=== PATIENT | male | born 1965 | race Caucasian/White ===

== ENCOUNTER 2022-08-02 11:56 | Observation (INO) ==
--- NOTE | 2022-08-02 12:56 | XRay Report ---
SINGLE VIEW CHEST CLINICAL HISTORY: Atypical chest pain. FINDINGS: An AP, portable, upright chest radiograph is compared to study dated 02/20/2022. The examina tion is degraded by portable technique and apical lordotic positioning. The heart is top normal for p rojection. The pulmonary vasculature is noncontrasted. The lungs and pleural spaces are clear. No pne umothorax is seen. The bony thorax is grossly intact. IMPRESSION: No active disease in the chest. ACT 112: Negative or not required by law. Electronically signed by: Josue Raphael M.D. 08/02/2022 12:54 PM
[2022-08-02 13:03] LABS: Basophils # (auto) 0.02 K/uL (0-0.2); Basophils % (auto) 0.3 %; Eosinophils # (auto) 0.14 K/uL (0-0.50); Eosinophils % (auto) 2.1 %; Hematocrit (blood only) 41.5 % (42.0-52.0); Immature Granulocytes # (auto) 0.02 K/uL (0.01-0.20); Immature Granulocytes % (auto) 0.3 %; Lymphocytes # (auto) 1.23 K/uL (1.2-3.4); Lymphocytes % (auto) 18.4 %; Mean Corpuscular Hemoglobin 30.3 pg (25.0-34.0); Mean Corpuscular Hgb Conc 33.7 g/dL (32.0-36.0); Mean Corpuscular Volume 89.8 fL (80.0-100.0); Mean Platelet Volume 10.6 fL (9.4-12.4); Neutrophils # (auto) 4.66 K/uL (1.40-6.50); Neutrophils % (auto) 69.9 %; Platelet Count 111 K/uL (130-400); RDW Coefficient of Variation 13.2 % (11.5-14.5); RDW Standard Deviation 43.4 fL (36.4-46.3); Red Blood Count 4.62 M/uL (4.70-6.10); White Blood Count 6.67 K/ul (4.8-10.8)
[2022-08-02 13:07] LABS: Albumin Globulin Ratio 1.9 (0.9-2); Albumin Level 4.4 gm/dl (3.4-5.0); BUN Creatinine Ratio 7.7 (10-20); Bilirubin,Total 0.6 mg/dl (0.2-1.0); Calcium 8.9 mg/dl (8.6-10.3); Creatinine Clr Calc Pharmacy 104.4 ml/min; Est GFR (African American) 91.9 ml/min; Est GFR (Non-African American) 79.3 ml/min; Globulin 2.3 gm/dl (2.5-4.0); Potassium 3.9 mmol/L (3.5-5.1); Total Protein 6.7 gm/dl (6.0-8.3)
[2022-08-02 13:17] LABS: Partial Thromboplastin Ratio 0.8; Partial Thromboplastin Time 20.8 Seconds (21.0-31.0); Prothrombin Time 10.3 Seconds (9.0-12.0); Troponin I High Sensitivity 26.1 pg/ml (0-20)
[2022-08-02] MEDS ORDERED: SODIUM CHLORIDE 0.9% 1000ML 1,000 ML IV ONE (14:24)
[2022-08-02] MEDS ORDERED: ASPIRIN CHEW 324 MG PO STA (14:24)
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
--- NOTE | 2022-08-02 15:12 | CT Scan Report ---
CT SCAN OF THE BRAIN WITHOUT IV CONTRAST CLINICAL HISTORY: Headache. COMPARISON STUDY: No priors. TECHNIQUE: Unenhanced axial CT scan of the brain is performed from the vertex to the skull base. A d ose lowering technique was utilized adhering to the principles of ALARA. CT DOSE: 601.98 mGy.cm FINDINGS: Brain parenchyma: The brain parenchyma is normal in appearance. There is no hemorrhage, mass effect, or evidence of acute territorial ischemia by CT criteria. Perez-white matter differentiation is preser eliud. No extra-axial fluid collection is seen. Ventricles, sulci, cisterns: Normal in configuration. Intracranial vasculature: The visualized intracranial vasculature at the skull base is normal in appe arance. Calvarium: Unremarkable. Sinuses and mastoids: There is evidence of previous paranasal sinus surgery. Mild mucosal thickening is noted in the ethmoid sinuses. The remaining visualized paranasal sinuses are clear. The mastoid ai r cells are well pneumatized. Orbits: The bony orbits are grossly intact. IMPRESSION: No acute intracranial abnormality. ACT 112: Negative or not required by law. Electronically signed by: Josue Raphael M.D. 08/02/2022 3:11 PM
[2022-08-02 15:14] LABS: Influenza A virus by PCR Negative (Neg); Influenza B virus by PCR Negative (Neg); RSV by PCR Negative (Neg); SARS CoV2 RNA(COVID-19) Ceph NEGATIVE (Negative)
[2022-08-02] MEDS ORDERED: ALBUTEROL 0.083% NEBU SOLN 3 ML VIAL NEB STA (15:22)
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
[2022-08-02] MEDS ORDERED: hydrALAZINE HCL 20 MG/ML VIAL IV STA (16:16)
[2022-08-02] MEDS ORDERED: clonazePAM 0.5 MG TAB PO STA (17:23)
[2022-08-02] MEDS ORDERED: amLODIPine BESYLATE 5 MG TAB PO ONE (17:30)
[2022-08-02] MEDS ORDERED: OPTIRAY 320 500ml IV ONE (18:17)
[2022-08-02 18:40] LABS: Adenovirus PCR Not Detected (NotDetected); Bordetella parapertussis PCR Not Detected (NotDetected); Bordetella pertussis PCR Not Detected (NotDetected); Chlamydia pneumoniae PCR Not Detected (NotDetected); Coronavirus 229E PCR Not Detected (NotDetected); Coronavirus CoV-2 (COVID19)PCR Not Detected (NotDetected); Coronavirus HKU1 PCR Not Detected (NotDetected); Coronavirus NL63 PCR Not Detected (NotDetected); Coronavirus OC43PCR Not Detected (NotDetected); Human Metapneumovirus PCR Not Detected (NotDetected); Influenza A PCR Not Detected (NotDetected); Influenza B PCR Not Detected (NotDetected); Mycoplasma pneumoniae PCR Not Detected (NotDetected); Parainfluenza Virus 1 PCR Not Detected (NotDetected); Parainfluenza Virus 2 PCR Not Detected (NotDetected); Parainfluenza Virus 3 PCR Not Detected (NotDetected); Parainfluenza Virus 4 PCR Not Detected (NotDetected); Respiratory Syncytial VirusPCR Not Detected (NotDetected)
[2022-08-02] MEDS ORDERED: ONDANSETRON INJ 2 MG/ML 2 ML VIAL IV PRN (18:44)
[2022-08-02] MEDS ORDERED: clonazePAM 0.5 MG TAB PO PRN (18:44)
[2022-08-02] MEDS ORDERED: ACETAMINOPHEN 325 MG TAB PO PRN (18:44)
--- NOTE | 2022-08-02 18:45 | CT Scan Report ---
CHEST CTA for PULMONARY ARTERIES CT DOSE: 832.66 mGy.cm HISTORY: dyspnea, chest pain/tightness, resp illness; r/oPE TECHNIQUE: Multiaxial CT images of the chest were performed following the intravenous administration of contrast to evaluate the pulmonary arteries. Maximal intensity projection images were also obtaine d. A dose lowering technique was utilized adhering to the principles of ALARA. COMPARISON STUDY: Abdomen and pelvis CT 02/06/2022. FINDINGS: Normal caliber thoracic aorta with no evidence for a dissection. The heart is top normal in size. No pleural or pericardial effusions. Suboptimal opacification of the pulmonary arteries due to the timing of contrast. However, there are no definite filling defects within the pulmonary arteries to suggest a pulmonary embolus. Limited views of the upper abdomen demonstrate hepatic steatosis and splenomegaly. This remains unchanged. Normal thyroid gland. Normal caliber esophagus. No mediastinal or hilar lymphadenopathy. No acute fractures. No pneumothorax. The central airways are patent. Mild emphysema. No focal lung consolidations to suggest a pneumonia. No evidence for pulmonary edema. IMPRESSION: 1. No evidence for a pulmonary embolus. 2. No focal lung consolidations to suggest a pneumonia. 3. Mild emphysema. 4. Hepatic steatosis and splenomegaly again noted. ACT 112: Negative or not required by law. Electronically signed by: Dilan Garcia M.D. 08/02/2022 6:42 PM
[2022-08-02 18:53] LABS: Rhinovirus/Enterovirus PCR DETECTED (NotDetected)
[2022-08-02] MEDS: LEVALBUTEROL TARTRATE 15 GM HFA.AER.AD INH SCH (20:57)
[2022-08-02] MEDS: IPRATROPIUM BROMIDE HFA INHALER INH SCH (20:57)
[2022-08-02] MEDS: INSULIN ASPART PER UNIT CHARGE SC SCH (21:26)
[2022-08-02] MEDS: LATANOPROST 0.005% OP SOLN 2.5 ML BTL OPB SCH (21:30)
[2022-08-02] MEDS: FIRST - Mouthwash BLM 119 ML PO SCH (21:30)
[2022-08-02] MEDS ORDERED: LANTUS PER UNIT CHARGE SQ ONE (21:30)
[2022-08-02] MEDS: guaiFENesin 600 MG TABCR PO SCH (21:31)
[2022-08-02] MEDS: AMMONIUM LACTATE 12% LOTION 225 GM BTL EXT SCH (21:31)
[2022-08-02] MEDS: traZODone HCL 50 MG TAB PO SCH (21:31)
[2022-08-02] MEDS: PANTOprazole 40 MG TAB PO SCH (21:31)
[2022-08-02] MEDS: BENZONATATE 100 MG CAPSULE PO SCH (21:31)
[2022-08-02] MEDS: MECLIZINE 12.5 MG TAB PO SCH (21:31)
--- NOTE | 2022-08-03 06:14 | Electrocardiogram Report ---
Test Reason : Blood Pressure : / mmHG Vent. Rate : 064 BPM Atrial Rate : 064 BPM P-R Int : 138 ms QRS Dur : 086 ms QT Int : 384 ms P-R-T Axes : 068 043 033 degrees QTc Int : 396 ms Normal sinus rhythm Normal ECG When compared with ECG of 20-FEB-2022 14:23, No significant change was found Confirmed by Jamel Velez ([id number]) on 08/03/2022 6:14:10 AM Referred By: Confirmed By:Jamel Velez
[2022-08-03 07:14] LABS: Hemoglobin 14.5 g/dl (14.0-18.0); Mean Corpuscular Hemoglobin 30.7 pg (25.0-34.0); Mean Corpuscular Hgb Conc 34.5 g/dL (32.0-36.0); Mean Corpuscular Volume 88.8 fL (80.0-100.0); Mean Platelet Volume 11.2 fL (9.4-12.4); Platelet Count 133 K/uL (130-400); RDW Coefficient of Variation 13.2 % (11.5-14.5); RDW Standard Deviation 43.4 fL (36.4-46.3); Red Blood Count 4.73 M/uL (4.70-6.10)
[2022-08-03 07:31] LABS: BUN Creatinine Ratio 11.3 (10-20); Calcium 8.9 mg/dl (8.6-10.3); Creatinine Clr Calc Pharmacy 101.7 ml/min; Est GFR (African American) 89.9 ml/min; Est GFR (Non-African American) 77.5 ml/min; Potassium 4.4 mmol/L (3.5-5.1)
[2022-08-03] MEDS: IPRATROPIUM BROMIDE HFA INHALER INH SCH ×3 (07:48→14:48)
[2022-08-03] MEDS: LEVALBUTEROL TARTRATE 15 GM HFA.AER.AD INH SCH ×3 (07:49→14:48)
[2022-08-03] MEDS ORDERED: predniSONE 20 MG TAB PO SCH (09:00)
[2022-08-03] MEDS ORDERED: amLODIPine BESYLATE 5 MG TAB PO SCH (09:00)
[2022-08-03] MEDS: FIRST - Mouthwash BLM 119 ML PO SCH ×4 (09:22→20:42)
[2022-08-03] MEDS: BUDESONIDE EC 3 MG CAP PO SCH (09:23)
[2022-08-03] MEDS: DULoxetine HCL 30 MG CAP PO SCH (09:23)
[2022-08-03] MEDS: busPIRone 7.5 MG TAB PO SCH (09:23)
[2022-08-03] MEDS: MECLIZINE 12.5 MG TAB PO SCH ×3 (09:23→20:42)
[2022-08-03] MEDS: FEXOFENADINE HCL 180 MG TAB PO SCH (09:23)
[2022-08-03] MEDS: CITALOPRAM 20 MG TAB PO SCH (09:23)
[2022-08-03] MEDS: guaiFENesin 600 MG TABCR PO SCH ×2 (09:23→20:42)
[2022-08-03] MEDS: MONTELUKAST SODIUM 10 MG TABLET PO SCH (09:23)
[2022-08-03] MEDS: BENZONATATE 100 MG CAPSULE PO SCH ×3 (09:24→20:42)
[2022-08-03] MEDS: PANTOprazole 40 MG TAB PO SCH ×2 (09:24→20:42)
[2022-08-03] MEDS: FLUTICASONE/VILANTEROL 200/25MCG 14 PUFFS/INHALER INH SCH (09:24)
[2022-08-03] MEDS: FLUTICASONE PROPIONATE NA SPR 16 GM BTL SCH (09:24)
[2022-08-03] MEDS: AMMONIUM LACTATE 12% LOTION 225 GM BTL EXT SCH ×2 (09:25→20:43)
[2022-08-03] MEDS: INSULIN ASPART PER UNIT CHARGE SC SCH ×4 (09:29→20:43)
[2022-08-03] MEDS ORDERED: LEVALBUTEROL TARTRATE 15 GM HFA.AER.AD INH PRN (16:41)
[2022-08-03] MEDS ORDERED: IPRATROPIUM BROMIDE HFA INHALER INH PRN (16:41)
[2022-08-03] MEDS ORDERED: amLODIPine BESYLATE 5 MG TAB PO ONE (18:05)
--- NOTE | 2022-08-03 20:07 | Hospitalist Progress Note ---
Date of Service August 03, 2022 Assessment & Plan (1) Persistent asthma with acute exacerbation: Plan: Chronic, uncontrolled asthma - now with flare 2nd to rhinovirus infection. IMPROVED overnight s/p steroids, nebs, cough meds, etc. Prednisone 60mg today, then 50mg tomorrow, and so forth. Cont nebs. Cont pulm toilet. at discharge would PLACE BACK ON DAILY ICS/LABA - HE HAD BEEN ON BREO IN THE PAST- THUS CONTINUE SUCH UPON D/C. He apparently follows with pulmonary in [place] but uncertain how compliant he is with that provider. (2) Rhinovirus infection: Plan: BioFire + for such. Droplet precautions. With resulting asthma exacerbation. See #1. (3) Elevated blood pressure reading without diagnosis of hypertension: Plan: Patient's medical record shows HTN in his past medical history. Patient himself, however, denies he has high blood pressure. With that said he has taken losartan and other meds based on pharmacy records. His BPs were markedly elevated (SBP 200+) upon ER presentation. Started amlodipine 5mg daily. Has had improvement with such. Titrate to 10mg/day. Obtain echo. Recent TSH wnl. (4) Chest pain: Plan: Suspect 2nd to #1 above. Pain has not been reproducible on exam. At time of ER presentation the pain had been continuous for nearly 24 hours. Troponin scantly elevated - likely from #3 - and quickly fell back to normal. no PEs seen on CTA chest. He had another episode of transient CP today - self-resolved. Plan - * given CAD risk factors will obtain echocardiogram * could consider stress test depending on clinical course and echo findings (5) Elevated troponin: Plan: Likely myocardial demand ischemia in setting of #1, #2. Doubt ischemia but see #4 above. Cont Telemetry. (6) Tinnitus: Plan: Acute on chronic. Chronic BPV? Acute Viral vestibular neuronitis? Started meclizine 12.5mg TID. Symptoms improved with such. Refer to ENT post-d/c. (7) Sleep apnea: Plan: Allow home use of BIPAP. If not available then will use hospital issued BIPAP. (8) Depression: Plan: Cont home meds. Anxiety - continue clonazepam prn. (9) Chronic sinusitis: Plan: Mucinex. Nasal steroid. Singulair. Refer to ENT post-d/c. Sinuses actually look fairly good on CT head done this admission. (10) Diabetes mellitus: Plan: HbA1c 6.9% -- 02/2022. Hold metformin. Given steroid his BSGs are elevated; thus, will use lantus + novolog. BSGs ac/hs. Adjust insulins as needed. 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 Ultimately referred to [facility] for this. On daily Entocort 6mg for such? (12) Glaucoma: Plan: Continue home drops. (13) History of peptic ulcer disease: Plan: Cont PPI twice daily. Plan DVT proph - if he stays beyond tomorrow add chemical DVT proph. Cont observation could potentially d/c tomorrow if he feels well, echo is wnl, etc. would advise outpatient stress echo if he does indeed discharge home on 08/04 Admission and Anticipated Discharge Date Admission Date: August 02, 2022 Subjective tele stable overnight - NSR he overall feels better today less cough less congestion no dyspnea had multiple loose stools this am - he reports his PCP Dr Peña had ordered stool studies at recent office visit despite the loose stools he is eating well and denies vomiting had 1 brief episode of chest discomfort - had it when he laid down today; quickly resolved when he sat back up only happened 1x this pain was different than the pain he had at time of ER presentation EKG obtained shortly after the episode - my reading - NSR, no ST Changes, looks the same as previous EKG Review of Systems Review of Systems: gen - no fevers cv - see HPI pulm - no dyspnea GI - no pain neuro - dizziness improved w/ meclizine Physical Exam Physical Exam: gen - obese, looks very good today HENT - pharyngeal erythema improved today; MMM neck - no JVD heart - RRR, s1 s2, no murmur lungs - wheezes resolved, airation improved; no rales abd - soft, NT, ND, BS+ chest - no reproducible chest wall pain to palpation ext - no edema, pulses 2+ b/l Results & Data Results & Data Vital Signs (Past 12 Hours) Vital Signs Temp Pulse Pulse Resp BP Pulse Ox O2 Del Method 08/03/22 19:36 36.9 C 86 18 167/78 H 95 Room Air 08/03/22 14:49 72 08/03/22 14:59 36.7 C 80 18 179/89 H 95 Room Air 08/03/22 14:48 90 16 96 Room Air 08/03/22 11:03 36.6 C 75 18 160/81 H 95 Room Air 08/03/22 10:58 75 16 96 Room Air Laboratory Results Laboratory Results - last 24 hr 08/02/22 08/02/22 08/02/22 20:24 21:15 21:15 WBC RBC Hgb Hct MCV MCH MCHC RDW Std Deviation RDW Coeff of Ernst Plt Count MPV Sodium Potassium Chloride Carbon Dioxide Anion Gap BUN Creatinine Est Cr Clr Drug Dosing Est GFR ( Amer) Est GFR (Non-Af Amer) BUN/Creatinine Ratio Glucose POC Glucose 247 H Calcium Magnesium 1.8 Troponin I High Sens 14.6 D 08/03/22 08/03/22 08/03/22 06:42 06:42 07:22 WBC 10.30 RBC 4.73 Hgb 14.5 Hct 42.0 MCV 88.8 MCH 30.7 MCHC 34.5 RDW Std Deviation 43.4 RDW Coeff of Ernst 13.2 Plt Count 133 MPV 11.2 Sodium 139 Potassium 4.4 Chloride 105 Carbon Dioxide 27 Anion Gap 7 BUN 12 Creatinine 1.06 Est Cr Clr Drug Dosing 101.7 Est GFR ( Amer) 89.9 Est GFR (Non-Af Amer) 77.5 BUN/Creatinine Ratio 11.3 Glucose 153 H POC Glucose 150 H Calcium 8.9 Magnesium Troponin I High Sens 08/03/22 08/03/22 08/03/22 10:52 15:50 19:50 WBC RBC Hgb Hct MCV MCH MCHC RDW Std Deviation RDW Coeff of Ernst Plt Count MPV Sodium Potassium Chloride Carbon Dioxide Anion Gap BUN Creatinine Est Cr Clr Drug Dosing Est GFR ( Amer) Est GFR (Non-Af Amer) BUN/Creatinine Ratio Glucose POC Glucose 148 H 199 H 190 H Calcium Magnesium Troponin I High Sens Diagnostic Findings EKG today - NSR, no ST Changes PG Care Time/CCT Total # of Minutes Spent Total Time Spent with Patient: Total time spent is greater than 50% in coordination of care (as documented) at patient's floor/unit and/or counseling patient: Coding Level of Care Code 99604 SUB INP/OBS CARE 50MIN Diagnoses Persistent asthma with acute exacerbation J45.901 Rhinovirus infection B34.8 Elevated blood pressure reading without diagnosis of hypertension R03.0 Chest pain R07.9 Elevated troponin R77.8 Tinnitus H93.19 Sleep apnea G47.30 Depression F32.A Chronic sinusitis J32.9 Diabetes mellitus E11.9 Light chain (AL) amyloidosis E85.81 Glaucoma H40.9 History of peptic ulcer disease Z87.11
[2022-08-03] MEDS: LATANOPROST 0.005% OP SOLN 2.5 ML BTL OPB SCH (20:42)
[2022-08-03] MEDS: traZODone HCL 50 MG TAB PO SCH (20:42)
[2022-08-03] MEDS ORDERED: LANTUS PER UNIT CHARGE SQ SCH ×2 (21:00)
--- NOTE | 2022-08-04 07:14 | Electrocardiogram Report ---
Test Reason : Blood Pressure : / mmHG Vent. Rate : 078 BPM Atrial Rate : 078 BPM P-R Int : 134 ms QRS Dur : 086 ms QT Int : 374 ms P-R-T Axes : 061 045 024 degrees QTc Int : 426 ms Normal sinus rhythm Normal ECG When compared with ECG of 02-AUG-2022 12:22, No significant change was found Confirmed by Reynaldo Singh ([id number]) on 08/04/2022 7:13:39 AM Referred By: REFERRED SELF Confirmed By:Kunal Singh
--- NOTE | 2022-08-04 07:34 | XCELERA ---
[id number]
[2022-08-04 07:35] LABS: BUN Creatinine Ratio 17.1 (10-20); Calcium 8.7 mg/dl (8.6-10.3); Creatinine Clr Calc Pharmacy 91.3 ml/min; Est GFR (African American) 79.7 ml/min; Est GFR (Non-African American) 68.8 ml/min; Potassium 4.2 mmol/L (3.5-5.1)
[2022-08-04] MEDS ORDERED: amLODIPine BESYLATE 5 MG TAB PO SCH (09:00)
[2022-08-04] MEDS ORDERED: predniSONE 50 MG TAB PO SCH (09:00)
[2022-08-04] MEDS: FIRST - Mouthwash BLM 119 ML PO SCH ×2 (09:04→11:59)
[2022-08-04] MEDS: DULoxetine HCL 30 MG CAP PO SCH (09:05)
[2022-08-04] MEDS: MONTELUKAST SODIUM 10 MG TABLET PO SCH (09:05)
[2022-08-04] MEDS: PANTOprazole 40 MG TAB PO SCH (09:05)
[2022-08-04] MEDS: CITALOPRAM 20 MG TAB PO SCH (09:05)
[2022-08-04] MEDS: BUDESONIDE EC 3 MG CAP PO SCH (09:05)
[2022-08-04] MEDS: FEXOFENADINE HCL 180 MG TAB PO SCH (09:05)
[2022-08-04] MEDS: busPIRone 7.5 MG TAB PO SCH (09:05)
[2022-08-04] MEDS: MECLIZINE 12.5 MG TAB PO SCH (09:05)
[2022-08-04] MEDS: AMMONIUM LACTATE 12% LOTION 225 GM BTL EXT SCH (09:06)
[2022-08-04] MEDS: guaiFENesin 600 MG TABCR PO SCH (09:06)
[2022-08-04] MEDS: FLUTICASONE PROPIONATE NA SPR 16 GM BTL SCH (09:07)
[2022-08-04] MEDS: FLUTICASONE/VILANTEROL 200/25MCG 14 PUFFS/INHALER INH SCH (09:07)
[2022-08-04] MEDS: BENZONATATE 100 MG CAPSULE PO SCH (09:10)
[2022-08-04] MEDS: INSULIN ASPART PER UNIT CHARGE SC SCH ×2 (09:13→12:03)
[2022-08-04 10:44] LABS: Adenovirus F 40/41 PCR Not Detected (NotDetected); Astrovirus PCR Not Detected (NotDetected); Campylobacter PCR Not Detected (NotDetected); Cryptosporidium PCR Not Detected (NotDetected); Cyclospora cayetanensis PCR Not Detected (NotDetected); Entamoeba histolytica PCR Not Detected (NotDetected); Enteroaggregative E.coli(EAEC) Not Detected (NotDetected); Enteropathogenic E.coli (EPEC) Not Detected (NotDetected); Enterotoxigenic E.coli (ETEC) Not Detected (NotDetected); Giardia lamblia PCR Not Detected (NotDetected); Norovirus GI/GII PCR Not Detected (NotDetected); Plesiomonas shigelloides PCR Not Detected (NotDetected); Rotavirus A PCR Not Detected (NotDetected); Salmonella PCR Not Detected (NotDetected); Sapovirus PCR Not Detected (NotDetected); Shiga-like Toxin E.coli (STEC) Not Detected (NotDetected); Shigella/Enteroinvasive E.coli Not Detected (NotDetected); Vibrio cholerae PCR Not Detected (NotDetected); Vibrio species PCR Not Detected (NotDetected); Yersinia enterocolitica PCR Not Detected (NotDetected)
--- NOTE | 2022-08-04 21:01 | Discharge Summary ---
Date of Service August 04, 2022 Admission HPI Per Admitting Provider 57yo male with history of asthma (vs COPD), former smoker (quit ~20 years ago), light chain amyloidosis diagnosed via colonoscopy 08/09/2020 at [facility] (now followed by [facility]), chronic neck pain, and T2DM presents from home with several days of runny nose, sore throat, nasal congestion, cough, mild sputum production, tinnitus (although this seems chronic), dizziness/vertigo, and dyspnea on exertion. He reports that sometime last evening he developed sternal chest pain "like someone is sitting on my chest." The pain has been constant since that time. It is not pleuritic. Pushing on the chest does not reproduce the pain. Albuterol has not relieved the pain. The patient reports that he has been on inhalers for asthma for some time. He could not tell me how long. He has followed with Pulmonology in [place]. He has been using albuterol on a daily basis for an uncertain amount of time - probably months. Sometimes he will use albuterol more than once each day. With respect to controller agents he reports having "another inhaler" but was unable to tell me the name. Patient mentions a host of other chronic issues including - * bright red bleeding per rectum - again he was dx with light chain amyloidosis of the colon in 2020; now following with the [facility]; placed on entocort 6mg daily for such? started this in the fall 2021? * dizziness - comes on with head movement and going from sitting to standing position; also comes on with other movements; he feels he is "off balance" and moving; not discrete spinning but he has disequilibrium * chronic sinus issues * high blood pressure - he was blaming his high BPs in the ER on receiving albuterol neb; he does report having used a multi-symptom cold/cough agent at home yesterday and possibly sudafed; he has taken blood pressure meds in the past including losartan Admission Exam Per Admitting Provider gen - obese, coughing, talks quickly and jumps from topic to topic, NAD/no respiratory distress eyes - PERRL HENT - TMs clear b/l, mild retraction; nose congested; throat - significant erythema of posterior pharynx neck - supple, shotty lymphadenopathy b/l heart - tachy, s1 s2, no murmur lungs - airation fair-poor, scattered end-exp wheezes, no rales, no respiratory distress abd - soft, mildly tender upper abdomen to deep palpation, obese, BS+ ext - no edema, pulses 2+ b/l neuro - strength 5/5 x 4 exts skin - no rash Principal Diagnosis Asthma Exacerbation Discharge Exam Constitutional WD/WN, vitals as above + obese Eyes + anicteric sclerae ENMT external ear and nose normal, oropharynx normal Neck trachea midline, no thyromegaly Respiratory normal respiratory effort and + cough Auscultation: lungs clear to auscultation bilaterally Cardiovascular RRR, no murmur, no edema Musculoskeletal Head/Neck/Chest: normocephalic and head atraumatic Skin no rashes, warm and dry Neurologic moves all extremities Psychiatric A+Ox3, euthymic affect Discharge Data Allergies Allergy/AdvReac Type Severity Reaction Status Date / Time azithromycin Allergy Intermediate Hives Verified 08/02/22 17:00 erythromycin base Allergy Intermediate Hives Verified 08/02/22 17:00 aripiprazole [From Abilify] AdvReac Intermediate Nausea Verified 08/02/22 17:00 cefuroxime AdvReac Intermediate Nausea Verified 08/02/22 17:00 terfenadine AdvReac Intermediate Nausea Verified 08/02/22 17:00 ziprasidone AdvReac Intermediate Nausea Verified 08/02/22 17:00 ketorolac [From Toradol] AdvReac Unknown Verified 08/02/22 17:01 prednisone AdvReac colitis Uncoded 08/02/22 17:00 Consultations 08/02/22 15:29 ED Decision to Admit Stat Ordered Studies 08/02/22 14:24 CT head/brain wo con Stat 08/02/22 17:22 CT angio chest PE protocol Stat Hospital Course (1) Persistent asthma with acute exacerbation: 57 yo M with a history of underlying asthma was admitted with a constellation of viral URI symptoms - patient tested positive for rhinovirus on biofire on admission - acute URI caused exacerbation of his underlying asthma - patient clinically improved with steroids, nebs and supportive care measures. - he had been on a daily ICS/LABA in the past, but this was stopped for uncertain reasons. He was directed to resume Breo daily for maintenance therapy. He preferred Xopenex over albuterol for rescue due to improved side effect profile - he apparently used to follow with [facility] in [place] -- however he stopped seeing folks in the [facility] system He was sent out with script for remainder of prednisone taper, breo and Xopenex. If the latter is too expensive, he knows to use albuterol in its place. He does have a spacer. I do not necessarily feel as though he needs to re-establish care with pulmonology if his PCP feels comfortable managing his asthma. (2) Rhinovirus infection: BioFire + for such. Droplet precautions. With resulting asthma exacerbation. See #1. (3) Elevated blood pressure reading without diagnosis of hypertension: Patient's medical record shows HTN in his past medical history. Patient himself, however, denies he has high blood pressure. With that said he has taken losartan and other meds based on pharmacy records. His BPs were markedly elevated (SBP 200+) upon ER presentation. He was started on amlodipine 10mg daily in the hospital. (4) Chest pain: Suspect 2nd to #1 above. Pain has not been reproducible on exam. At time of ER presentation the pain had been continuous for nearly 24 hours. Troponin scantly elevated - likely from #3 - and quickly fell back to normal. no PEs seen on CTA chest. echo obtained while in-house --> normal EF, no wall motion abnormalities, no evidence of valvular disease (5) Elevated troponin: Likely myocardial demand ischemia in setting of #1, #2. (6) Tinnitus: Acute on chronic. etiology uncertain : Chronic BPV vs. Acute Viral vestibular neuronitis? Started meclizine 12.5mg TID; Symptoms improved with such. Refer to ENT/Audiology post-d/c. (7) Sleep apnea: - has bipap (8) Depression: Cont home meds. (9) Chronic sinusitis: Mucinex. Nasal steroid. Singulair. Refer to ENT post-d/c. Sinuses actually look fairly good on CT head done this admission. (10) Diabetes mellitus: - HbA1c 6.9% -- 02/2022; repeat level drawn while in hospital, pending by the time of discharge - patient was apparently taking metformin in the past but stopped due to GI distress (although he says discussions with PCP have questioned whether another ailment could be the cause of this symptoms). 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 Ultimately referred to [facility] for this. On daily Entocort 6mg for the above (12) Glaucoma: Continue home drops. (13) History of peptic ulcer disease: Cont PPI twice daily. Total Time Total Time Spent Total Time Spent (In Minutes): 40 Total Time Includes: Examination of the Patient, Discharge Planning and Medication Reconciliation Discharge Plan Discharge Items Patient Disposition: Home - Self-Care Reason For Visit: CHEST PAIN, ASTHMA EXACERBATION, UNCONTROLLED HTN Discharge Diagnosis: Asthma Exacerbation Activity: Resume your previous activity Non-emergency contact: Primary Care Provider Call non-emergency contact if: you have any medication questions and your symptoms worsen Follow-up/Referrals: Johnnie Peña MD [Primary Care Provider] - 08/07/22 8:00 am (Follow up sche duled on 08/07/2022 at 8am with Lizeth JUAREZ) Diet: Carb Consistent or DM2 Addtl Attending Provider Instructions: You were admitted to [facility] for evaluation of chest pain. Fortunately, testing showed no evidence of strain on your heart. Instead, it appeared as though you had contracted rhinovirus, a common respiratory virus, and this caused an exacerbation or flare of your underlying asthma. You were treated with steroids and nebulizers and you clinically improved while under our care. Please use your Breo Inhaler once daily moving forward. This is now part of your everyday maintenance regimen for your asthma. You should only be using your albuterol inhaler on an as needed basis for wheezing or chest tightness. In the hospital you liked Xopenex better than albuterol, so a script was sent in for Xopenex. If this gets covered by insurance, you can use Xopenex in place of the Albuterol on an as needed basis. Ideally, regular, consistent use of your Breo inhaler eliminates or reduces the need to use your rescue inhaler. Next, we want you to complete the following steroid taper: take 40mg of prednisone on 08/05/22 --> take 30mg on 08/06/22 --> take 20mg on 08/06/22 --> then stop. Finally, you may continue to use Mucinex (available over the counter) to help loosen up the mucous in your chest (which will make it easier to cough up and out). We also started you on a medication, amlodipine 10mg daily during your hospital stay for elevated blood pressure. Please continue taking this medication daily. Please follow up with Dr. Peña, your PCP, within the next week. Pending Studies at Discharge: No Stand-Alone Forms: [facility], Work/School Release, Smoking Cessation Medications and DC Order Prescriptions: New amlodipine [Norvasc] 5 mg Tablet 10 mg PO QAM 30 Days Qty: 60 0RF levalbuterol tartrate [Xopenex HFA] 45 mcg/actuation Hfa Aerosol Inhaler 2 puff inhalation QIDR PRN (Reason: shortness of breath or wheezing) 30 Days Qty: 1 0RF prednisone 10 mg tablet 10 mg PO DIRECTED Qty: 9 0RF Rx Instructions: see taper instructions. Take 40mg on Day 1 --> take 30mg on Day 2 --> take 20mg on day 3 --> then stop fluticasone furoate-vilanterol [Breo Ellipta] 200-25 mcg/dose blister with device 1 inh inhalation DAILY 30 Days Qty: 60 0RF duloxetine 30 mg Capsule,Delayed Release(Dr/Ec) 30 mg PO QAM 30 Days Qty: 30 0RF Continued montelukast 10 mg tablet 10 mg PO DAILY Qty: 30 2RF Systane Ultra (PF) 0.4-0.3 % dropperette 1 drp ophthalmic (eye) DAILY PRN (Reason: Eye Irritation) budesonide 3 mg capsule,delayed,extend.release 6 mg PO DAILY omeprazole 40 mg capsule,delayed release(DR/EC) 40 mg PO BID Qty: 60 2RF latanoprost 0.005 % drops 1 drp OPB HS trazodone 50 mg tablet 50 - 100 mg PO HS buspirone 7.5 mg Tablet 7.5 mg PO QAM clonazepam 0.5 mg tablet 0.5 mg PO TID PRN (Reason: Anxiety) citalopram [Celexa] 20 mg tablet 20 mg PO QAM Discontinued albuterol sulfate [Ventolin HFA] 90 mcg/actuation HFA aerosol inhaler 2 puff inhalation Q6H PRN (Reason: shortness of breath or wheezing) Qty: 8.5 3RF Discharge Orders: Discharge Order (Routine); Ordered 08/04/22 Ordered By: Jenna Brennan/Other Patient Handouts: Arthritis: Exercise, Asthma Admission Data Admit Date/Time: 08/02/22 17:35 Attending Provider: Jenna France Admit Provider: Kenneth Alva Primary Care Provider: Johnnie Peña Other Providers: Kenneth Alva Other Interventions: Discharge Summary Assessment (RN) Last Done: 08/04/22 10:46 C[place] [address] INP/OBS DISCH >30 MIN Patient Type Established Diagnoses Persistent asthma with acute exacerbation J45.901 Rhinovirus infection B34.8 Elevated blood pressure reading without diagnosis of hypertension R03.0 Chest pain R07.9 Elevated troponin R77.8 Tinnitus H93.19 Sleep apnea G47.30 Depression F32.A Chronic sinusitis J32.9 Diabetes mellitus E11.9 Light chain (AL) amyloidosis E85.81 Glaucoma H40.9 History of peptic ulcer disease Z87.11
[2022-08-05 08:07] LABS: Estimated Average Glucose 154 mg/dl
--- NOTE | 2022-08-22 10:04 | Coding Query ---
A supporting diagnosis is required for the test/procedure performed on this patient in order for us to be reimbursed by the patient's insurance. Please provide a supporting diagnosis for the following test/procedure listed below next to the test name along with your signature. *If there is no additional diagnosis for this patient that would support the following test/procedure please document that below next to the test/procedure. Test(s)/Procedure(s) that require a supporting diagnosis: Gastrointestinal Panel DIAGNOSIS:__R19.7 - diarrhea; K62.5 - rectal bleeding Provider Signature: ___Kenneth Alva MD Date: __08/27/22 Thank you Bianca Meza [facility] Information Management Once completed, please kindly fax back to [phone] For questions please call [phone] [facility]ITAL[facility]
== END 2022-08-04 13:16 | disposition home or self-care (01) ==
LOC: ED 11:56 → EDINP 11:56 → SUATTDRO 17:35 → 2S 18:44